=== PATIENT | female | born 1930 | race Caucasian/White ===

== ENCOUNTER 2017-05-28 04:36 | Inpatient (IN) | payer MEDICARE, OTHER ==
[~2017-05-28] VITALS: Ht 167.6 cm; Wt 76.0 kg
[~2017-05-28 04:36] MED LIST: ACET-1145 PO; AMLO5TAB4 PO; CARV25TA79 PO; CEPH-443 PO; ESOM40CA PO; FER325 PO; INSU100V14 SC; LANT3I SC; LEVE-5 PO; LEVO100T87 PO; QUET50TA22 PO; SIMV40TA2 PO
[2017-05-28] MEDS ORDERED: ASPIRIN 81 MG TAB PO STA (04:48)
--- NOTE | 2017-05-28 04:54 | ERD ---
ER Documentation Chief Complaint Chief Complaint BIBA [id number], left side CP HPI Patient is an 86-year-old female who presents with sudden onset, constant, moderate left lower chest pain since 3:30 AM when she was straining to have a bowel movement. She denies shortness of breath, denies pleuritic pain, denies vomiting. She was not able to have a bowel movement. History is somewhat limited due to underlying dementia and language barrier. The patient intermittently points to her left upper quadrant of the abdomen versus her left chest. History was facilitated with English net application architect.The patient was sent from the care home after receiving nitroglycerin. Patient does have cardiac history, but cannot state exactly what her cardiac history is. ROS All systems reviewed and are negative except as per history of present illness. Medications Home Meds Active Scripts Acetaminophen-Codeine (Tylenol With Codeine #3 Tablet) 300-30 Mg Tablet, 1 TAB PO Q4H Y for PAIN, #20 TAB Prov:PHILLIP ELIAS DO 12/07/15 Cephalexin* (Keflex*) 500 Mg Capsule, 500 MG PO TID for 7 Days, CAP Prov:PHILLIP ELIAS DO 12/07/15 Reported Medications Quetiapine Fumarate* (Quetiapine Fumarate*) 50 Mg Tablet, 50 MG PO HS, TAB 12/07/15 Insulin Glargine* (Lantus*) 100 Unit/Ml Soln, 24 UNIT SC QHS, #1 VIAL 12/07/15 Insulin Regular, Human (Humulin R) 100 Units/Ml Vial, 0 SC SLIDING SCALE AC, VIAL 12/07/15 Ferrous Sulfate* (Ferrous Sulfate*) 325 Mg Tabec, 325 MG PO DAILY, TAB 12/07/15 Levetiracetam* (Keppra*) 500 Mg Tablet, 500 MG PO DAILY, TAB 12/07/15 Amlodipine Besylate* (Norvasc*) 5 Mg Tablet, 5 MG PO DAILY, TAB 12/07/15 Carvedilol* (Carvedilol*) 25 Mg Tablet, 25 MG PO BID, #60 TAB 12/07/15 Esomeprazole Mag Trihydrate (Nexium) 40 Mg Capsule.dr, 40 MG PO DAILY, #30 CAP 12/07/15 Simvastatin* (Zocor*) 40 Mg Tablet, 40 MG PO QHS, #30 TAB 12/07/15 Levothyroxine Sodium* (Levothyroxine Sodium*) 100 Mcg Tablet, 100 MCG PO BEFORE BREAKFAST, #30 TAB 12/07/15 Allergies Allergies: Coded Allergies: sulfamethoxazole (Unverified Allergy, Unknown, KIDNEY INSUFFICIENCY, ) trimethoprim (Unverified Allergy, Unknown, KIDNEY INSUFFICIENCY, 12/07/15) Uncoded Allergies: VITAMIN C,CITRUS (Allergy, Severe, BODY RASH, 01/02/12) PMhx/Soc Past medical history: Diabetes mellitus, coronary artery disease, CHF, hypertension, anemia, dementia Past surgical history: Unknown Social history: Lives in care home, cannot obtain history on prior smoking History of Surgery: Yes (CATARACT SURGERY BOTH EYES, CHOLCYSTECTOMY) Anesthesia Reaction: No Hx Neurological Disorder: No Hx Respiratory Disorders: No Hx Cardiac Disorders: Yes (HTN,PALPITATION, DM) Hx Psychiatric Problems: No Hx Miscellaneous Medical Probl: No (AMENIA, ARTHRITIS) Hx Alcohol Use: No Hx Substance Use: No Hx Tobacco Use: No FmHx Noncontributory Physical Exam Vitals Vital Signs Date Time Temp Pulse Resp B/P Pulse Ox O2 Delivery O2 Flow Rate FiO2 05/28/17 04:41 98.6 98 18 137/78 96 Physical Exam Const: Alert, intermittent moaning in pain, does not appear in distress Head: Atraumatic Eyes: Normal Conjunctiva, No pallor, no icterus ENT: Normal External Ears, Nose and Mouth. Mucous membranes moist Neck: Full range of motion. No JVD Resp: Clear to auscultation bilaterally, No wheezes, no rales Cardio: Mild tachycardia, irregularly irregular rhythm, No murmur, no gallop Abd: Soft, Mild tenderness in left upper quadrant, no guarding, no rebound, no pulsatile mass Skin: No petechiae or rashes Back: No midline or flank tenderness Ext: No cyanosis, or edema Neur: Awake and alert, Cranial nerves II through XII intact bilaterally, moves and feels 4 extremities Psych: Normal Mood and Affect Results 24 hrs Current Medications Medications (Trade) Dose Ordered Sig/Sita Route PRN Reason Start Time Stop Time Status Last Admin Dose Admin Aspirin (Aspirin) 162 mg ONCE STAT PO 05/28/17 04:48 05/28/17 04:50 DC 05/28/17 05:16 Sodium Biphosphate/ Sodium Phosphate (Fleet Enema) 133 ml ONCE ONCE AR 05/28/17 05:00 05/28/17 05:01 DC 05/28/17 05:16 Famotidine (Pepcid) 20 mg ONCE ONCE PO 05/28/17 05:00 05/28/17 05:01 DC 05/28/17 05:16 Hydromorphone HCl (Dilaudid) 0.5 mg ONCE STAT IV 05/28/17 06:14 05/28/17 06:16 DC 05/28/17 06:21 Procedures/MDM EKG read by me: Time 0445, rate 106 Rhythm: Atrial fibrillation with rapid ventricular response [place]: Normal Intervals: Normal ST-T waves: no ischemic changes, T-wave flattening in multiple leads Ectopy: No Q-waves: No Impression: Atrial fibrillation without ischemic changes MDM: Patient is an 86-year-old female with dementia and coronary artery disease who was sent to the ER from her care home for chest pain. History is somewhat limited due to the patient's advanced age and underlying dementia, as well as language barrier. The patient does report having left-sided substernal chest pain. There are no features that are suggestive of pulmonary embolism. The patient also reports constipation and left upper quadrant abdominal pain. She is given aspirin and Pepcid. Due to lab error in displacing blood specimens , there is delay in obtaining laboratory tests. The patient was signed out to Dr. Alberts, with plan to review labs and admit the patient for further cardiac workup given her advanced age and known coronary artery disease. Her EKG was nonischemic, her abdominal exam was not concerning for surgical disease , and x-rays of the abdomen and chest were unremarkable. Departure Diagnosis: Primary Impression: Chest pain Chest pain type: unspecified Qualified Code: R07.9 - Chest pain, unspecified type Additional Impression: Atrial fibrillation Atrial fibrillation type: unspecified Qualified Code: I48.91 - Atrial fibrillation, unspecified type Condition: JAY Beach MD May 28, 2017 04:54
[2017-05-28] MEDS ORDERED: NA PHOSPHATE/BIPHOS 133 ML ENEMA PR ONE (05:00)
[2017-05-28] MEDS ORDERED: FAMOTIDINE 20 MG TAB PO ONE (05:00)
--- NOTE | 2017-05-28 05:49 | RADRPT ---
PROCEDURE: XR Abdomen. CLINICAL INDICATION: Constipation TECHNIQUE: AP abdomen x-ray. COMPARISON: None. FINDINGS: There is no definite evidence for bowel obstruction. Free air cannot be excluded on a supine radiogr aph. Vascular calcification. Calcified pelvic phleboliths. There are degenerative changes of the sp ine and hips. IMPRESSION: No definite acute abnormality. RPTAT: [facility] Physician Alpa Date Time Electronically viewed and signed by Noemy Quinones Physician on 05/28/2017 05:49 LE/
--- NOTE | 2017-05-28 05:50 | RADRPT ---
PROCEDURE: XR Chest. CLINICAL INDICATION: Chest pain TECHNIQUE: Portable single view of the chest COMPARISON: 12/07/2015 FINDINGS: Cardiomegaly and aortic calcification again seen. Mild interstitial prominence of the lungs with red uced lung volumes. No definite focal infiltrate, pleural effusion, or overt congestive heart failure . Degenerative change of the spine. IMPRESSION: No significant interval change. Cardiomegaly and reduced lung volumes with increased interstitial ma rkings. RPTAT: [facility] Physician Alpa Date Time Electronically viewed and signed by Noemy Quinones Physician on 05/28/2017 05:50 LE/
[2017-05-28] MEDS ORDERED: HYDROmorphONE 1 MG/ML SYG IV STA (06:14)
[2017-05-28 07:17] LABS: BASOPHILS % 0.5 % (0.0-2.0); EOSINOPHILS # 0.1 10^3/ul (0.0-0.5); EOSINOPHILS % 1.2 % (0.0-7.0); HEMATOCRIT 30.6 % (37.0-47.0); HEMOGLOBIN 10.3 g/dl (12.0-16.0); LYMPHOCYTES # 1.2 10^3/ul (0.8-2.9); LYMPHOCYTES % 20.2 % (15.0-51.0); MEAN CORPUSCULAR HEMOGLOBIN 31.2 pg (29.0-33.0); MEAN CORPUSCULAR HGB CONC 33.7 g/dl (32.0-37.0); MEAN CORPUSCULAR VOLUME 92.7 fl (82.0-101.0); MEAN PLATELET VOLUME 10.8 fl (7.4-10.4); MONOCYTE # 0.7 10^3/ul (0.3-0.9); MONOCYTES % 11.5 % (0.0-11.0); NEUTROPHIL # 3.9 10^3/ul (1.6-7.5); NEUTROPHILS % 66.1 % (39.0-77.0); PLATELET COUNT 135 10^3/UL (140-415); RED CELL DISTRIBUTION WIDTH 12.6 % (11.5-14.5); WHITE BLOOD COUNT 5.8 10^3/ul (4.8-10.8)
[2017-05-28 07:42] LABS: ALANINE AMINOTRANSFERASE 32 IU/L (13-69); ALBUMIN 3.7 g/dl (3.3-4.9); ALBUMIN/GLOBULIN RATIO 1.23; ALKALINE PHOSPHATASE 58 IU/L (42-121); ANION GAP 15 (8-16); ASPARTATE AMINO TRANSFERASE 23 IU/L (15-46); BILIRUBIN,INDIRECT 0.4 mg/dl (0-1.1); BILIRUBIN,TOTAL 0.4 mg/dl (0.2-1.3); BLOOD UREA NITROGEN 19 mg/dl (7-20); CALCIUM 9.9 mg/dl (8.4-10.2); CARBON DIOXIDE 22 mmol/L (21-31); CHLORIDE 103 mmol/L (97-110); CREATININE 0.96 mg/dl (0.44-1.00); GLUCOSE 266 mg/dl (70-220); INR 1.41; POTASSIUM 4.6 mmol/L (3.5-5.1); PROTIME 17.3 Sec (12.2-14.2); PT RATIO 1.4; SODIUM 135 mmol/L (135-144); TOTAL PROTEIN 6.7 g/dl (6.1-8.1)
[2017-05-28 07:54] LABS: TROPONIN-I < 0.012 ng/ml (0.00-0.12)
[2017-05-28 08:00] VITALS: TEMP 98.3
[2017-05-28] MEDS ORDERED: ASPI-664 PO (08:05)
[2017-05-28] MEDS ORDERED: APIX5TAB PO (08:05)
[2017-05-28] MEDS ORDERED: ATOR20TA38 PO (08:06)
[2017-05-28] MEDS ORDERED: CARV6.2579 PO (08:07)
[2017-05-28] MEDS ORDERED: [UNRECOGNIZED DRUG - CODE] TP (08:09)
[2017-05-28] MEDS ORDERED: BISA10SU55 RC (08:10)
[2017-05-28] MEDS ORDERED: FURO-110 PO (08:16)
[2017-05-28] MEDS ORDERED: NA P133E39 RC (08:16)
[2017-05-28] MEDS ORDERED: GABA100C14 PO (08:17)
[2017-05-28] MEDS ORDERED: LANT3I SC (08:18)
[2017-05-28] MEDS ORDERED: INSU100V3 IJ (08:23)
[2017-05-28] MEDS ORDERED: LEVE500T8 PO (08:24)
[2017-05-28] MEDS ORDERED: LEVO125T71 PO (08:25)
[2017-05-28] MEDS ORDERED: MAGN400T27 PO (08:26)
[2017-05-28] MEDS ORDERED: LISI2.5T59 PO (08:26)
[2017-05-28] MEDS ORDERED: MULTI PO (08:27)
[2017-05-28] MEDS ORDERED: MECL-77 PO (08:27)
[2017-05-28] MEDS ORDERED: POLY17PO6 PO (08:27)
[2017-05-28] MEDS ORDERED: TRAM-40 PO ×2 (08:29)
[2017-05-28] MEDS ORDERED: LORAZEPAM 0.5 MG TAB PO ONE (09:00)
[2017-05-28] MEDS ORDERED: D5W-0.45 NACL + KCL 20 MEQ 1,000 ML IV SCH (12:11)
--- NOTE | 2017-05-28 12:17 | EN ---
Date/Time of Note Date/Time of Note DATE: 05/28/17 TIME: 12:15 ER Progress Note Emergency medicine consultation note: Patient signed out to me pending labs and for admission. CBC and electrolytes were unremarkable, liver function tests were normal, troponin was negative. Patient had continued anxiety and discomfort so I treated her here with hydromorphone 0.5 mg IV 1 as well as lorazepam 0.5 mg IV 1. Patient admitted to hospitalist team for chest pain. Please refer to earlier dictation for full ER course and medical decision making. JACKY ARMSTRONG MD May 28, 2017 12:17
[2017-05-28] MEDS ORDERED: morphine 2 MG INJ IV PRN (12:30)
[2017-05-28] MEDS ORDERED: HYDROCODONE/APAP (5/325) TAB PO PRN (12:30)
[2017-05-28] MEDS ORDERED: ZOLPIDEM 5 MG TAB PO PRN (12:30)
[2017-05-28] MEDS ORDERED: NITROGLYCERIN (SL) 0.4 MG TAB SL PRN (12:30)
[2017-05-28] MEDS ORDERED: BISACODYL 10 MG SUPP PR PRN (12:30)
[2017-05-28] MEDS ORDERED: NACL 0.9% 3 ML SYG IV SCH (12:30)
[2017-05-28] MEDS ORDERED: traMADol 50 MG TAB PO PRN ×2 (12:30)
[2017-05-28] MEDS ORDERED: MECLIZINE 25 MG TAB PO PRN (12:30)
[2017-05-28] MEDS ORDERED: ONDANSETRON 4 MG INJ IV PRN (12:30)
[2017-05-28] MEDS ORDERED: ACETAMINOPHEN 325 MG TAB PO PRN (12:30)
[2017-05-28 14:05] VITALS: BP 188/88; RESP 16; Ht 167.6 cm; Wt 76.0 kg
--- NOTE | 2017-05-28 15:29 | HP ---
Date/Time of Note Date/Time of Note DATE: 05/28/17 TIME: 15:23 Assessment/Plan VTE Prophylaxis VTE Prophylaxis Intervention: LMWH Lines/Catheters IV Catheter Type (from Nrsg): Saline Lock Assessment/Plan Chief Complaint/Hosp Course 1. Chest pain likely muscular but rule out ACS Trend troponin 2D echo Aspirin and Coreg Pain control 2. Diabetes Continue home regimen and sign scale 3. Seizure disorder Continue home Keppra 4. Hypertension Continue home meds Prophylaxis: Lovenox Problems: HPI/ROS Admit Date/Time Admit Date/Time May 28, 2017 at 08:15 Hx of Present Illness Patient is an 86-year-old female with history of paroxysmal A. fib, dyslipidemia , diabetes, hypertension, seizure disorder and hypothyroidism who presents with sudden onset constant, left lower chest pain since last night when she was straining to have a bowel movement. Patient denies any shortness of breath she reports still having the pain. Patient is a poor historian likely secondary dementia and language barrier. She resides in a nursing facility, in the ER there is no evidence of ACS. ROS Poor historian PMH/Family/Social Past Medical History As per HPI Social History Smoking Status: Never smoker Drug Use: none Exam/Review of Systems Vital Signs Vitals Vital Signs Date Time Temp Pulse Resp B/P Pulse Ox O2 Delivery O2 Flow Rate FiO2 05/28/17 13:35 85 16 110/65 96 Room Air 05/28/17 08:00 98.3 Exam Constitutional: alert Respiratory: clear to auscultation Cardiovascular: regular rate and rhythm Gastrointestinal: soft, No distended Musculoskeletal: nl extremities to inspection Labs Result Diagram: 05/28/17 0700 05/28/17 0700 Medications Medications Current Medications Potassium Chloride/Dextrose/ Sod Cl (D5-1/2ns + KCl 20 Meq) 1,000 ml @ 75 mls/ hr [id number] IV ; Start 05/28/17 at 12:11 Ondansetron HCl (Zofran Inj) 4 mg Q6H PRN IV NAUSEA AND/OR VOMITING; Start at 12:30 Acetaminophen (Tylenol Tab) 650 mg Q6H PRN PO PAIN LEVEL 1-3 OR FEVER; Start 05/28/17 at 12:30 Acetaminophen/ Hydrocodone Bitart ([place] (5/325)) 1 tab Q6H PRN PO MODERATE PAIN LEVEL 4-6; Start 05/28/17 at 12:30 Morphine Sulfate (morphine) 2 mg Q4H PRN IV SEVERE PAIN LEVEL 7-10; Start at 12:30 Zolpidem Tartrate (Ambien) 5 mg QHS PRN PO SLEEP; Start 05/28/17 at 12:30 Enoxaparin Sodium (Lovenox) 40 mg DAILY SC ; Start 05/29/17 at 09:00 Nitroglycerin (Nitroglycerin (Sl Tab) 0.4 Mg) 1 tab Q5M PRN SL CHEST PAIN; Start 05/28/17 at 12:30 Amlodipine Besylate (Norvasc) 5 mg DAILY PO ; Start 05/29/17 at 09:00 Apixaban (Eliquis) 5 mg BID PO ; Start 05/28/17 at 21:00 Aspirin (Halfprin) 81 mg DAILY PO ; Start 05/29/17 at 09:00 Atorvastatin Calcium (Lipitor) 20 mg QHS PO ; Start 05/28/17 at 21:00 Bisacodyl (Dulcolax Supp) 10 mg DAILY PRN [place] CONSTIPATION; Start 05/28/17 at 12:30 Carvedilol (Coreg) 6.25 mg BID PO ; Start 05/28/17 at 21:00 Ferrous Sulfate (Ferrous Sulfate (Ec)) 325 mg DAILY PO ; Start 05/29/17 at 09: 00 Furosemide (Lasix) 20 mg DAILY PO ; Start 05/29/17 at 09:00 Gabapentin (Neurontin) 100 mg TID PO ; Start 05/28/17 at 13:00 Insulin Glargine (Lantus) 30 unit QHS SC ; Start 05/28/17 at 21:00 Levetiracetam (Keppra) 500 mg BID PO ; Start 05/28/17 at 21:00 Lisinopril (Zestril) 2.5 mg DAILY PO ; Start 05/29/17 at 09:00 Magnesium Oxide (Mag-Ox 400) 400 mg DAILY PO ; Start 05/29/17 at 09:00 Meclizine HCl (Antivert) 25 mg BID PRN PO DIZZINESS; Start 05/28/17 at 12:30 Multivitamins Therapeutic (Theragran) 1 tab DAILY PO ; Start 05/29/17 at 09:00 Polyethylene Glycol (Miralax) 17 gm DAILY PO ; Start 05/29/17 at 09:00 Tramadol HCl (Ultram) 50 mg Q8 PRN PO PAIN LEVEL 4-6; Start 05/28/17 at 12:30 Pantoprazole (Protonix Tab) 40 mg DAILY@06 PO ; Start 05/29/17 at 06:00 DUTCH DORSEY May 28, 2017 15:29
[2017-05-28] MEDS: GABAPENTIN 100 MG CAP PO SCH ×3 (15:56→20:28)
[2017-05-28] MEDS ORDERED: GLUCOSE GEL 15 GRAM TUBE PO PRN ×2 (16:00)
[2017-05-28] MEDS ORDERED: GLUCOSE GEL 15 GRAM TUBE BUCCAL PRN (16:00)
[2017-05-28] MEDS ORDERED: GLUCAGON 1 MG INJ IM PRN (16:00)
[2017-05-28] MEDS ORDERED: DEXTROSE 50% 50 ML SYRINGE IV PRN ×2 (16:00)
[2017-05-28 16:06] VITALS: PULSE 93
[2017-05-28 16:07] VITALS: BP 145/67; RESP 18
[2017-05-28] MEDS: INSULIN ASPART [NOVOLOG] 3 ML PEN SC SCH ×2 (17:22→20:24)
[2017-05-28] MEDS ORDERED: LORAZEPAM 2 MG INJ IV PRN (18:05)
[2017-05-28] MEDS ORDERED: LORAZEPAM 2 MG INJ IM ONE (19:00)
[2017-05-28 20:00] VITALS: BP 159/90; PULSE 130; RESP 19; RESP 20
[2017-05-28 20:05] VITALS: PULSE 115
[2017-05-28] MEDS: LEVETIRACETAM 500 MG TAB PO SCH (20:20)
[2017-05-28] MEDS: APIXABAN 5 MG TABLET PO SCH (20:20)
[2017-05-28] MEDS ORDERED: ATORVASTATIN 20 MG TAB PO SCH (21:00)
[2017-05-28] MEDS ORDERED: INSULIN GLARGINE [LANtus] 3 ML PEN SC SCH (21:00)
[2017-05-29] VITALS (10 sets, daily range): BP systolic 99–142; BP diastolic 55–74; PULSE 71–95; RESP 18
[2017-05-29] MEDS ORDERED: ACCU-CHEK XX SCH (02:00)
[2017-05-29] MEDS ORDERED: PANTOPRAZOLE (EC) 40 MG TAB PO SCH (06:00)
[2017-05-29] MEDS ORDERED: LEVOTHYROXINE 125 MCG TAB PO SCH (07:00)
[2017-05-29] MEDS: INSULIN ASPART [NOVOLOG] 3 ML PEN SC SCH ×3 (08:00→18:01)
[2017-05-29 08:51] LABS: BASOPHILS % 0.7 % (0.0-2.0); EOSINOPHILS # 0.2 10^3/ul (0.0-0.5); EOSINOPHILS % 3.5 % (0.0-7.0); HEMOGLOBIN 10.8 g/dl (12.0-16.0); LYMPHOCYTES # 1.2 10^3/ul (0.8-2.9); LYMPHOCYTES % 26.6 % (15.0-51.0); MEAN CORPUSCULAR HEMOGLOBIN 30.9 pg (29.0-33.0); MEAN CORPUSCULAR HGB CONC 33.8 g/dl (32.0-37.0); MEAN CORPUSCULAR VOLUME 91.4 fl (82.0-101.0); MEAN PLATELET VOLUME 10.5 fl (7.4-10.4); MONOCYTE # 0.9 10^3/ul (0.3-0.9); MONOCYTES % 20.3 % (0.0-11.0); NEUTROPHIL # 2.2 10^3/ul (1.6-7.5); NEUTROPHILS % 48.2 % (39.0-77.0); PLATELET COUNT 134 10^3/UL (140-415); RED CELL DISTRIBUTION WIDTH 12.7 % (11.5-14.5); WHITE BLOOD COUNT 4.6 10^3/ul (4.8-10.8)
[2017-05-29 08:56] LABS: CALCIUM 10.2 mg/dl (8.4-10.2); CHOL/HDL RATIO 2.1 RATIO; CREATININE 0.86 mg/dl (0.44-1.00); MAGNESIUM 1.8 mg/dl (1.7-2.5)
[2017-05-29] MEDS ORDERED: LISINOPRIL 5 MG TAB PO SCH (09:00)
[2017-05-29] MEDS ORDERED: FERROUS SULFATE (EC) 325 MG TAB PO SCH (09:00)
[2017-05-29] MEDS ORDERED: MAGNESIUM OXIDE 400 MG TAB PO SCH (09:00)
[2017-05-29] MEDS ORDERED: POLYETHYLENE GLYCOL 17 GM PACKET PO SCH (09:00)
[2017-05-29] MEDS ORDERED: ASPIRIN (EC) 81 MG TAB PO SCH (09:00)
[2017-05-29] MEDS ORDERED: AMLODIPINE 5 MG TAB PO SCH (09:00)
[2017-05-29] MEDS ORDERED: FUROSEMIDE 20 MG TAB PO SCH (09:00)
[2017-05-29] MEDS ORDERED: MULTIVITAMINS THERAPEUTIC TAB PO SCH (09:00)
[2017-05-29] MEDS ORDERED: ENOXAPARIN 40 MG/0.4 ML SYG SC SCH (09:00)
[2017-05-29] MEDS: GABAPENTIN 100 MG CAP PO SCH ×2 (09:29→12:23)
[2017-05-29] MEDS: APIXABAN 5 MG TABLET PO SCH (09:30)
[2017-05-29] MEDS: LEVETIRACETAM 500 MG TAB PO SCH (09:30)
--- NOTE | 2017-05-29 12:10 | DS ---
Date/Time of Note Date/Time of Note DATE: 05/29/17 TIME: 12:06 Discharge Summary Admission/Discharge Info Admit Date/Time May 28, 2017 at 08:15 Discharge Date/Time May 29, 2017 Discharge Diagnosis 1. Chest pain secondary to muscular pain-resolved ACS ruled out 2. Diabetes Continue home regimen 3. Seizure disorder Continue home Keppra 4. Hypertension Continue home meds 5. Dementia DC back to assisted Patient Condition: Good Hospital Course Patient is an 86-year-old female with history of paroxysmal A. fib, dyslipidemia , diabetes, hypertension, seizure disorder and hypothyroidism who presents with sudden onset constant, left lower chest pain since last night when she was straining to have a bowel movement. ACS was ruled out, patient's chest pain did resolve. Patient did have some confusion with sundowning in the evening during hospitalization but her mentation improved the following day. Patient is felt to be stable for DC, on the day of discharge patient vitals, labs and physical exam are stable had no further complaints and questions answered. Home Meds Reported Medications Tramadol Hcl* (Ultram*) 50 Mg Tablet, 50 MG PO DAILY Y for PAIN MANAGMENT, TAB 05/28/17 Tramadol Hcl* (Ultram*) 50 Mg Tablet, 50 MG PO Q8 Y for PAIN LEVEL 4-6, TAB 05/28/17 Multivitamins* (Theragran*) 1 Tab Tab, 1 TAB PO DAILY, TAB 05/28/17 Polyethylene Glycol* (Miralax*) 17 Gm Powd.pack, 17 GM PO DAILY, #30 PACKET 05/28/17 Meclizine Hcl* (Meclizine Hcl*) 25 Mg Tablet, 25 MG PO BID Y for DIZZINESS, TAB 05/28/17 Magnesium Oxide* (Mag-Oxide*) 400 Mg Tablet, 400 MG PO DAILY, TAB 05/28/17 Lisinopril* (Lisinopril*) 2.5 Mg Tablet, 2.5 MG PO DAILY, #30 TAB HOLD IF SBP BELOW 110 OR HR BELOW 60 05/28/17 Levothyroxine Sodium* (Levoxyl*) 125 Mcg Tablet, 125 MCG PO BEFORE BREAKFAST, # 30 TAB 05/28/17 Levetiracetam* (Levetiracetam*) 500 Mg Tablet, 500 MG PO BID, TAB 05/28/17 Insulin Regular, Human (Humulin R) 100 Unit/1 Ml Vial, 0 IJ AC MEALS AND BEDTIME , VIAL SLIDING SCALE 131-160 = 2 UNITS 161-200 = 3 UNITS 201-250 = 6 UNITS 251-300 = 9 UNITS 301-350 =12 UNITS 351-400 =15 UNITS IF BELOW 60 OR GREATER THAN 400 CALL 05/28/17 Insulin Glargine* (Lantus*) 100 Unit/Ml Soln, 30 UNIT SC QHS, #1 VIAL 05/28/17 Gabapentin* (Gabapentin*) 100 Mg Capsule, 100 MG PO TID, #90 CAP 05/28/17 Furosemide* (Lasix*) 20 Mg Tablet, 20 MG PO DAILY, TAB HOLD IF SBP BELOW 110 05/28/17 Sodium Phosphate,[place]-Dibasic (Enema Ready To Use) 133 Ml Enema, 133 ML RC EVERY 72 HOURS Y for CONSTIPATION, ENEMA 05/28/17 Bisacodyl (Dulcolax) 10 Mg Supp.rect, 10 MG RC DAILY Y for CONSTIPATION, SUPP.RECT 05/28/17 Methyl Salicylate/Menth/Camph (Bengay Ultra Strength Crm) 113 Gm Cream.gm., 113 GM TP TID APPLY TO LOWER BODY LEGS HIPS 05/28/17 Carvedilol* (Carvedilol*) 6.25 Mg Tablet, 6.25 MG PO BID, #60 TAB HOLD IF SBP BELOW 110 OR HR BELOW 60 05/28/17 Atorvastatin Calcium* (Atorvastatin Calcium*) 20 Mg Tablet, 20 MG PO QHS, #30 TAB 05/28/17 Aspirin (Low Dose Aspirin) 81 Mg Tablet., 81 MG PO DAILY, #30 TAB 05/28/17 Apixaban* (Eliquis*) 5 Mg Tablet, 5 MG PO BID, TAB 05/28/17 Ferrous Sulfate* (Ferrous Sulfate*) 325 Mg Tabec, 325 MG PO DAILY, TAB 12/07/15 Amlodipine Besylate* (Norvasc*) 5 Mg Tablet, 5 MG PO DAILY, TAB 12/07/15 Esomeprazole Mag Trihydrate (Nexium) 40 Mg Capsule.dr, 40 MG PO DAILY, #30 CAP 12/07/15 Discontinued Reported Medications Quetiapine Fumarate* (Quetiapine Fumarate*) 50 Mg Tablet, 50 MG PO HS, TAB 12/07/15 Insulin Glargine* (Lantus*) 100 Unit/Ml Soln, 24 UNIT SC QHS, #1 VIAL 12/07/15 Insulin Regular, Human (Humulin R) 100 Units/Ml Vial, 0 SC SLIDING SCALE AC, VIAL 12/07/15 Levetiracetam* (Keppra*) 500 Mg Tablet, 500 MG PO DAILY, TAB 12/07/15 Carvedilol* (Carvedilol*) 25 Mg Tablet, 25 MG PO BID, #60 TAB 12/07/15 Simvastatin* (Zocor*) 40 Mg Tablet, 40 MG PO QHS, #30 TAB 12/07/15 Levothyroxine Sodium* (Levothyroxine Sodium*) 100 Mcg Tablet, 100 MCG PO BEFORE BREAKFAST, #30 TAB 12/07/15 Discontinued Scripts Acetaminophen-Codeine (Tylenol With Codeine #3 Tablet) 300-30 Mg Tablet, 1 TAB PO Q4H Y for PAIN, #20 TAB Prov:PHILLIP ELIAS DO 12/07/15 Cephalexin* (Keflex*) 500 Mg Capsule, 500 MG PO TID for 7 Days, CAP Prov:PHILLIP ELIAS DO 12/07/15 Follow-up Plan Follow-up physicians at longterm facility Primary Care Provider Rajiv Solomon Time spent on discharge: > 30 minutes DUTCH DORSEY May 29, 2017 12:10
--- NOTE | 2017-05-29 15:56 | RADRPT ---
Echocardiogram Report Patient Name: KIRK SHEARER Gender: Female Date: 1930 Study Date: 29-May-2017 Oxygraph Operator: Mamadou Jeffery [facility] Location: [id number]-A Ref. Physician: DUTCH DORSEY Quality: Adequate Procedures: Transthoracic echocardiogram with complete 2D, M-Mode, and doppler examination. Indications: Chest Pain. 2D/M Mode Doppler Measurement Value Normal Ranges Measurement Value Normal Ranges LVIDd 2D 3.8 3.5 - 5.6 cm AV Peak Fernando 1.5 m/sec LVIDs 2D 2.5 2.1 - 4.1 cm AV Peak PG 9.0 mmHg FS 2D 35.7 % AI Peak PG 44.0 mmHg LVPWd 2D 1.3 0.6 - 1.1 cm AI Peak Fernando 3.3 m/sec IVSd 2D 1.3 0.6 - 1.1 cm AI PHT 584.0 msec IVS/LVPW 2D 1.0 LVOT Peak Fernando 0.7 m/sec AoR Diam 2D 3.4 2.0 - 3.7 cm LVOT Peak PG 2.0 mmHg LA/Ao 2D 1 0 - 1 MV E Peak Fernando 1.5 m/sec EDV 2D 56.6 cm3 MV Decel Time 215 msec ESV 2D 15.1 cm3 MR Peak PG 89.0 mmHg LA Dimen 2D 4.7 2.3 - 4.0 cm MR Peak Fernando 4.7 m/sec TR Peak Fernando 3.2 m/sec TR Peak PG 41.0 mmHg RVSP 44.0 mmHg Findings Left Ventricle: Normal left ventricular systolic function. Normal left ventricular cavity size. Mild concentric left ventricular hypertrophy. Ejection fraction is visually estimated at 60 %. Abnormal Diastolic Function. Right Ventricle: Normal right ventricular size. Normal right ventricular systolic function. Left Atrium: There is moderate enlargement of left atrium. Right Atrium: There is mild enlargement of right atrium. Mitral Valve: Mild mitral leaflet calcification. Mild mitral annular calcification. Mild mitral valve regurgitation. Aortic Valve: Aortic sclerosis without stenosis. Mild aortic valve regurgitation. Tricuspid Valve: Normal appearance of the tricuspid valve. Estimated peak PA systolic pressure 44 mmHg. There is mild tricuspid regurgitation. Pulmonic Valve: Pulmonic valve not well visualized. There is trace pulmonic regurgitation. Pericardium: Normal pericardium with no significant pericardial effusion. Aorta: Normal aortic root. IVC: Normal size and normal respiratory collapse consistent with normal right atrial pressure. Conclusions Normal left ventricular systolic function. Normal left ventricular cavity size. Mild concentric left ventricular hypertrophy. Ejection fraction is visually estimated at 60 %. Abnormal Diastolic Function. Aortic sclerosis without stenosis. Mild aortic valve regurgitation. Mild mitral leaflet calcification. Mild mitral annular calcification. Mild mitral valve regurgitation. Normal appearance of the tricuspid valve. Estimated peak PA systolic pressure 44 mmHg. There is mild tricuspid regurgitation. Electronically Signed By: Fabian Alex 29-May-2017 15:55:47 -0800 Patient Name: KIRK SHEARER Study Date: 29-May-[id number]
== END 2017-05-29 18:39 | DRG 313 ==
LOC: E/R 04:36 → MS4 08:15
PROVIDERS: ADMIT Internal Medicine; ATTEND Internal Medicine
DX: R07.89 Other chest pain (principal); F03.90 Unspecified dementia, unspecified severity, without behavioral disturbance, psychotic disturbance, mood disturbance, and anxiety; I48.91 Unspecified atrial fibrillation; E11.9 Type 2 diabetes mellitus without complications; G40.909 Epilepsy, unspecified, not intractable, without status epilepticus; I10 Essential (primary) hypertension
CPT/HCPCS: 36415; 71010; 74000; 80048; 80053; 80061; 82962; 83036; 83690; 83735; 84100; 84484; 85025; 85610; 93005; 93306; 96374; J1170; J1815; J2060